=== PATIENT | male | born 1995 | race Caucasian/White ===

== ENCOUNTER 2020-06-07 10:58 | Emergency (ER) | payer OTHER ==
[~2020-06-07] VITALS: Ht 182.9 cm; Wt 71.9 kg
[2020-06-07 11:12] VITALS: BP 132/79
== END 2020-06-07 11:56 | disposition home or self-care (01) ==
LOC: ED 11:45
DX: B34.9 Viral infection, unspecified (principal)
CPT/HCPCS: 99282